=== PATIENT | male | born 1945 | race Asian ===

== ENCOUNTER 2018-09-19 17:20 | Emergency (ER) | payer OTHER ==
[~2018-09-19] VITALS: Ht 170.2 cm; Wt 62.6 kg
[2018-09-19 17:28] VITALS: Ht 170.2 cm; Wt 62.6 kg
[2018-09-19 21:30] VITALS: BP 142/79; PULSE 77; RESP 18
[2018-09-19] MEDS ORDERED: FUROSEMIDE 20 MG INJ IV ONE (21:30)
--- NOTE | 2018-09-19 21:33 | ERD ---
ER Documentation Chief Complaint Chief Complaint Pt with BLE pitting edema X 1 months , toe purplish color. hx DM HPI This is a 73-year-old male with a past medical history of diabetes and hypertension who presents to the emergency department with a painful left big toe. The patient does not recall any trauma but he does states he has a decreased sensation to his lower extremities as he has had diabetes for 40 years with neuropathy. He said no fevers or shaking no chills. He did notice mild swelling of his bilateral lower extremities with no calf tenderness. He stated the swelling occurred roughly a few weeks ago. He did state it occurred after he been gardening. No shortness of breath. No chest pain. No fevers no s haking no chills. ROS All systems reviewed and are negative except as per history of present illness. Allergies Allergies: Coded Allergies: No Known Allergy (Unverified , 09/19/18) PMhx/Soc Hx Miscellaneous Medical Probl: Yes (EARLY ONSET ALZHEIMERS) Hx Alcohol Use: No Hx Substance Use: No Hx Tobacco Use: No Smoking Status: Unknown if ever smoked Physical Exam Vitals Vital Signs Date Temp Pulse Resp B/P (MAP) Pulse Ox O2 O2 Flow FiO2 Time Delivery Rate 09/19/18 98.7 91 18 117/64 98 17:28 (81) Physical Exam Constitutional:Well-developed. Well-nourished. HEENT:Normocephalic. Atraumatic.Pupils were equal round reactive to light. Moist mucous membranes.No tonsillar exudates. Neck: No nuchal rigidity. No lymphadenopathy. No posterior cervical spine tenderness or step-offs. Respiratory: Not using accessory muscles of respiration.Lungs were clear to auscultation bilaterally. No rhonchi. No rales. No wheezing. Cardiovascular: Regular rate regular rhythm.No murmurs. No rubs were appreciated.S1, S2 normal. Distal pulses are palpable 2+ bilaterally. GI: Abdomen was soft. Nontender. Non Distended. No pulsatile abdominal masses or bruits. No rebound. No guarding. Bowel sounds were present and normal. Muscle skeletal: Full range of motion of both the upper and lower extremities bilaterally.Normal muscle tone.No assymetrical calf tenderness or swelling. Skin: No petechia, no purpura. No lesions on the palms or the soles of the feet. No maculopapular rash. Ecchymosis along medial aspect of the first distal phalanx base with mild tenderness and no subcutaneous emphysema NEURO: Patient was alert, awake, orientated x3.No facial droop. Gait observed and normal with no ataxia.Speech had regular rate and rhythm. No focal neurological deficits. Result Diagram: 09/19/18194409/19/181944 Results 24 hrs Laboratory Tests Test 09/19/18 19:45 White Blood Count 5.9 10^3/ul Red Blood Count 4.49 10^6/ul Hemoglobin 13.6 g/dl Hematocrit 42.4 % Mean Corpuscular Volume 94.4 fl Mean Corpuscular Hemoglobin 30.3 pg Mean Corpuscular Hemoglobin Concent 32.1 g/dl Red Cell Distribution Width 11.7 % Platelet Count 279 10^3/UL Mean Platelet Volume 9.9 fl Immature Granulocytes % 0.200 % Neutrophils % 57.9 % Lymphocytes % 29.3 % Monocytes % 9.0 % Eosinophils % 2.4 % Basophils % 1.2 % Nucleated Red Blood Cells % 0.0 /100WBC Immature Granulocytes # 0.010 10^3/ul Neutrophils # 3.4 10^3/ul Lymphocytes # 1.7 10^3/ul Monocytes # 0.5 10^3/ul Eosinophils # 0.1 10^3/ul Basophils # 0.1 10^3/ul Nucleated Red Blood Cells # 0.0 10^3/ul Prothrombin Time 12.9 Sec Prothrombin Time Ratio 1.0 INR International Normalized Ratio 0.96 Activated Partial Thromboplast Time 36.9 Sec Sodium Level 140 mmol/L Potassium Level 4.0 mmol/L Chloride Level 100 mmol/L Carbon Dioxide Level 34 mmol/L Anion Gap 6 Blood Urea Nitrogen 17 mg/dl Creatinine 0.65 mg/dl Est Glomerular Filtrat Rate mL/min mL/min Glucose Level 104 mg/dl Calcium Level 9.2 mg/dl Total Bilirubin 0.3 mg/dl Direct Bilirubin 0.00 mg/dl Indirect Bilirubin 0.3 mg/dl Aspartate Amino Transf (AST/SGOT) 25 IU/L Alanine Aminotransferase (ALT/SGPT) 23 IU/L Alkaline Phosphatase 57 IU/L Troponin I < 0.012 ng/ml B-Type Natriuretic Peptide 26 PG/ML Total Protein 7.2 g/dl Albumin 3.9 g/dl Globulin 3.30 g/dl Albumin/Globulin Ratio 1.18 Procedures/MDM This is a very pleasant 73-year-old male that presented to the emergency department with bilateral edema that was not appreciated on physical exam. I obtain venous duplex ultrasounds of lower extremities and there is no evidence of a DVT. Chest radiograph showed no evidence of pulmonary vascular congestion. The patient had no signs of atypical myocardial infarction. 12 Lead EKG tracing ordered and reviewed by myself showed: Normal sinus rhythm of 76 bpm and no arrhythmia. WA interval normal. QRS duration normal. No ST segment elevation No ST segment depression. No changes consistent with acute ischemia. The patient had no severe electrolyte abnormalities. Renal function was within normal limits. The patient no leukocytosis. I did feel the patient's symptoms are likely result of a fracture as I obtained a radiograph and may imaging of the patient's left foot and the radiologist indicated that there was a fracture along medial aspect of the first distal phalanx base. The patient was not in pain and was refusing an Ortho boot. They are going to follow-up with her primary care physician in 24 hours. The patient was discharged home in fair condition. They were instructed to return to the emergency department at any time if there was any worsening of their condition. The patient stated they would follow up with their PCP in the next 24-48 hours to initiate a suitable medication regimen under the care of their PCP as well as to allow their PCP to monitor any drug reactions. The patient was discharged home with prescriptions after they gave informed consent to the new medication. They were also fully informed by myself on the adverse effects and adverse drug interactions in order to provide adequate safeguards to prevent possible adverse reactions to medications. Departure Diagnosis: Primary Impression: Closed fracture of toe Encounter type: initial encounter Toe: great toe Phalanx: distal Fracture alignment: nondisplaced Laterality: left Qualified Codes: S92.425A - Nondisplaced fracture of distal phalanx of left great toe, initial encounter for closed fracture Condition: ISHMAEL Alford MD Sep 19, 2018 21:33
== END 2018-09-19 21:57 | disposition home or self-care (01) ==
LOC: E/R 17:20
DX: S92.425A Nondisplaced fracture of distal phalanx of left great toe, initial encounter for closed fracture (principal); I10 Essential (primary) hypertension; E11.9 Type 2 diabetes mellitus without complications; M79.89 Other specified soft tissue disorders; X58.XXXA Exposure to other specified factors, initial encounter; Y92.9 Unspecified place or not applicable
CPT/HCPCS: 71045; 73630; 80053; 83880; 84484; 85025; 85610; 85730; 93005; 93970; 96374; 99285; J1940